=== PATIENT | female | born 1955 | race Caucasian/White ===

== ENCOUNTER 2025-09-29 10:00 | Outpatient (AMB) | payer OTHER, SELFPAY ==
--- NOTE | 2025-09-29 10:11 | MHC.PC.OV ---
Vital Signs 09/29/25 10:15 Height 5 ft 4 in Weight 130 lb 6 oz BMI 22.4 BP 130/80 Blood Pressure Location Lt brachial Position Sitting Respiration 18 Pulse 74 Pulse Source Pulse Oximeter Temp 97.3 F Temp Source Temporal Artery Scan Pulse Oximetry (%) 98 Oxygen Delivery Method Room Air Intake Visit Reasons: CUT OFF SAW OPERATOR METAL-knee pain Acetylene Operator Required: No Accompanied by: Self / Same As Patient Allergies No Known Allergies Allergy (Verified 09/29/25 10:18) Medication List - Last Reconciled 09/29/25 by Sherine Queen MD No Known Home Meds Tobacco use date assessed: 09/29/25 Fall risk assessment: No Falls in past year Last assessed Fall Risk: 09/29/25 Dental Screening Dental Screen Date: 09/29/25 Did you have a dental visit in the last 12 months?: Yes Did you have a dental problem in the last 6 months where you did not have access to dental care?: No Was dental information given to patient?: Patient has dentist HPI HPI Comments History of Present Illness Details The patient is a 70-year-old female presenting to [facility], as she has been without a primary care physician for over a year and expresses dissatisfaction with her previous health center. She currently takes no medications. The patient reports a recent positive stool test and requires a follow-up colonoscopy. She recalls having a colonoscopy a very long time ago and found the liquid preparation unpleasant. She is also due for a bone density scan and a mammogram. The patient has a history of smoking but quit two years ago. She states she smoked on and off, with her longest period of cessation being 15 years, and resumed after her . She reports having a previous lung scan at [facility] due to her smoking history. Past medical history is significant for an episode of pneumonia in her 50s. She has also received the shingles vaccine previously. She had a history of hand contracture, which was initially investigated for a possible stroke, treated unsuccessfully with a cortisone injection, and ultimately resolved with physical therapy. Similarly, a bout of knee pain resulting from an injury also resolved completely with physical therapy. [facility] Social History Alcohol intake: never Patient Tobacco Use Status: Former Tobacco user Tobacco use type: Cigarette e-Cigarette/Vaping Use: Never Used Current occupational status: retired Cognitive needs: No Hearing needs: No Vision needs: Yes Questionnaire PHQ-9 Over the last 2 weeks, how often have you been bothered by any of the following problems? 1. Little interest or pleasure in doing things: not at all 2. Feeling down, depressed, or hopeless: not at all 3. Trouble falling or staying asleep, or sleeping too much: not at all 4. Feeling tired or having little energy: not at all 5. Poor appetite or overeating: not at all 6. Feeling bad about yourself - or that you are a failure or have let yourself or your family down: not at all 7. Trouble concentrating on things, such as reading the newspaper or watching television: not at all 8. Moving or speaking so slowly that other people could have noticed. Or the opposite - being so fidgety or restless that you have been moving around a lot more than usual: not at all 9. Thoughts that you would be better off or of hurting yourself in some way: not at all Total score: 0 80309 - PHQ-9 Billing: Yes Source: Developed by Drs. Riaz Brody, Savanna Devine, Dony Brady and colleagues, with an educational michelle from [employer]. Thrive Questionnaire Date Thrive assessed: 09/29/25 I am a: Patient What is your living situation today?: I have a steady place to live Within the past 12 months, did the food you bought not last and you didn't have the money to get more?: Never true Within the past 12 months, did you worry whether your food would run out before you got money to buy more?: Never true Do you have trouble paying for medicines?: No Do you have trouble getting transportation to medical appointments?: No Do you have trouble paying your heating and electricity bill?: No Do you have trouble taking care of your child, family member or friend?: No Do you have trouble with day-to-day activities such as bathing, preparing meals, shopping, managing finances, etc.?: No Are you currently unemployed and looking for a job?: No Are you interested in more education?: No THRIVE Score: 0 AUDIT C Alcohol Use Questionnaire (AUDIT-C) 1. How often do you have a drink containing alcohol?: Never Total Score: 0 CHARLES-7 AMB Questionnaire CHARLES-7 Date CHARLES - 7 assessed: 09/29/25 Feeling nervous, anxious, or on edge: 0 = Not at all Not being able to stop or control worryin = Not at all Worrying too much about different things: 0 = Not at all Trouble relaxin = Not at all Being so restless that it is hard to sit still: 0 = Not at all Becoming easily annoyed or irritable: 0 = Not at all Feeling afraid as if something awful might happen: 0 = Not at all Total CHARLES-7 score (0-4 normal; 5-9 mild; 10-14 moderate; 15-21 severe): 0 Source: Developed by Drs. Riaz Brody, Savanna Devine, Dony Brady and colleagues, with an educational michelle from [employer]. CHARLES-7 Assessment Billing CHARLES-7 Assessment Tool: CHARLES-7 Assessment 45638 Review of Systems Const Details: Positives besides what was mentioned in HPI are in BOLD Constitutional: No Weight Change, No Fever, No Chills, No Night Sweats, No Fatigue, No Malaise ENT/Mouth: No Hearing Changes, No Ear Pain, No Nasal Congestion, No Sinus Pain, No Hoarseness, No sore throat, No Rhinorrhea, No Swallowing Difficulty Eyes: No Eye Pain, No Swelling, No Redness, No Foreign Body, No Discharge, No Vision Changes Cardiovascular: No Chest Pain, No SOB, No PND, No Dyspnea on Exertion, No Orthopnea, No Claudication, No Edema, No Palpitations Respiratory: No Cough, No Sputum, No Wheezing, No Smoke Exposure, No Dyspnea Gastrointestinal: No Nausea, No Vomiting, No Diarrhea, No Constipation, No Pain, No Heartburn, No Anorexia, No Dysphagia, No Hematochezia, No Melena, No Flatulence, No Jaundice Genitourinary: No Dysmenorrhea, No DUB, No Dyspareunia, No Dysuria, No Urinary Frequency, No Hematuria, No Urinary Incontinence, No Urgency, No Flank Pain, No Urinary Flow Changes, No Hesitancy Musculoskeletal: No Arthralgias, No Myalgias, No Joint Swelling, No Joint Stiffness, No Back Pain, No Neck Pain, No Injury History Skin: No Skin Lesions, No Pruritis, No Hair Changes, No Breast/Skin Changes, No Nipple Discharge Neuro: No Weakness, No Numbness, No Paresthesias, No Loss of Consciousness, No Syncope, No Dizziness, No Headache, No Coordination Changes, No Recent Falls Psych: No Anxiety/Panic, No Depression, No Insomnia, No Personality Changes, No Delusions, No Rumination, No SI/HI/AH/VH, No Social Issues, No Memory Changes, No Violence/Abuse Hx., No Eating Concerns Heme/Lymph: No Bruising, No Bleeding, No Transfusions History, No Lymphadenopathy Endocrine: No Polyuria, No Polydipsia, No Temperature Intolerance Physical exam (Primary Care) Vital Signs: Last Vital Signs Temp 97.3 F 09/29/25 10:15 Pulse 74 09/29/25 10:15 Resp 18 09/29/25 10:15 BP 130/80 09/29/25 10:15 Pulse Ox 98 09/29/25 10:15 Oxygen Delivery Method Room Air 09/29/25 10:15 BMI result Body Mass Index 22.4 Tobacco/Smoking Status: Tobacco use Status Tobacco use date assessed 09/29/25 09/29/25 10:24 Patient Tobacco Use Status Former Tobacco user 09/29/25 10:24 Tobacco use type Cigarette 09/29/25 10:24 e-Cigarette/Vaping Use Never Used 09/29/25 10:24 PHQ-9: PHQ-9 Score PHQ-9: Total score 0 09/29/25 10:55 Thrive Assessment: Date of Thrive Assessment Date Thrive assessed 09/29/25 09/29/25 10:24 Const Other: Pertinent findings are in BOLD GENERAL APPEARANCE NAD, activity normal for age, well developed/ well nourished, no cyanosis, pallor, or diaphoresis. EYES lids/conjunctiva normal. EARS/NOSE/THROAT Mucous membranes moist, nares normal, lips/teeth normal uvula midline without oral pharyngeal erythema, exudate or swelling TMs normal bilaterally. No lymphangitis/lymphedema. HEAD/NECK normocephalic atraumatic, no facial trauma, neck is supple. RESPIRATORY respiratory effort normal, speaks in full sentences, no tripod position, no accessory muscle use. Lungs clear to auscultation without rhonchi, wheezes, rales CARDIAC Regular rate and rhythm, no edema. ABDOMINAL Soft, ND/NT. No evidence of fluid wave. No pulsatile masses on exam, rebound tenderness, Wall sign or pain over Mcburney's point. MUSCLES/EXTREMITIES No abnormal range of motion, no swelling. SKIN Warm, pink and dry. No rashes, dermatoses, petechiae or lesions. NEUROLOGICAL Speech is clear and appropriate. Normal level of consciousness. Gait and coordination are normal. 5/5 strength in all extremities. PSYCH Normal mood and affect. Judgement/competence is appropriate Immunizations pneumoc 20-lula conj-dip cr(PF) 0.5 mL IM syringe Performing Provider: Sherine Queen MD Performing Location: [facility] Administered by: Ngoc Alba CMA on 09/29/25 11:16 Dose Route Admin Location Dispensed Lot Number Expiration Date [facility] [employer] Rep[employer] 0.5 mL IM Right Deltoid 0.5 mL [id number] 08/01/26 5959-2482-56 [employer]YETH/PFIZER Total Dispensed Waste 0.5 mL 0 % VIS Given Date VIS Provided VIS Publication Date 09/29/25 Single Vaccine 25 Eligibility Eligibility Date Funding Source Not VFC Eligible 09/29/25 Private Boostrix Tdap 2.5 Lf unit-8 mcg-5 Lf/0.5 mL intramuscular syringe Performing Provider: Sherine Queen MD Performing Location: [facility] Administered by: Ngoc Alba CMA on 09/29/25 11:16 Dose Route Admin Location Dispensed Lot Number Expiration Date [place] [employer]r 0.5 mL IM Right Deltoid 0.5 mL [id number] 02/25/28 97439-934-03 [employer] Total Dispensed Waste 0.5 mL 0 % VIS Given Date VIS Provided VIS Publication Date 09/29/25 Single Vaccine 21 Eligibility Eligibility Date Funding Source Not VFC Eligible 09/29/25 Private Coding Level of Care Code New Pt Level 4 (15773) New Pt Prev Care 40-64y(26070) Diagnoses Healthcare maintenance Z00.00 Postmenopausal Z78.0 Tobacco use disorder F17.200 Additional Codes CHARLES-7 Assessment Billing - CHARLES-7 Assessment Tool: CHARLES-7 Assessment 19477 ([id number]) PHQ-9 - 65190 - PHQ-9 Billing: Yes ([id number]) Time Spent (min) 30 Assessment & Plan Assessment & Plan (1) Healthcare maintenance: Code(s): Z00.00 - Encounter for general adult medical examination without abnormal findings Category: Medical Plan: CBC, CMP, Lipid panel, A1C, TSH w T4, vit D. Ordered. Shingles 2 doses when >50 yo. Done. COVID: two doses. Done in the past. Tdap: Ordered today. Pneumococcal: >50 yo. 18-49 with CKD, lung disease, weakened immune system, Heart disease, DM, cochlear implant. Flu vaccine: Retail pharmacy Colonoscopy: 45-75. Ordered today. AAA: 65 -75. CT lun - 80. Did not smoke in two years. HPV: Aged out. HIV: Ordered today. HCV: Ordered today. Dexa: Ordered today. Mammogram: Ordered today. (2) Postmenopausal: Code(s): Z78.0 - Asymptomatic menopausal state Category: Medical Plan: Dexascan. (3) Tobacco use disorder: Code(s): F17.200 - Nicotine dependence, unspecified, uncomplicated Category: Medical Plan: - Due to the patient's history of smoking, a one-time screening ultrasound of the abdomen was ordered to check for an abdominal aortic aneurysm (AAA). - Discussed referral to a airplane gas tank liner assembler for consideration of yearly low-dose CT scans for lung cancer screening. Plan I have discussed the plan of care with the patient. We reviewed the necessity of a colonoscopy following her positive stool test, and I explained that while the prep is unpleasant, the standard liquid formula is the most effective. Due to her history of smoking, I explained the rationale for a one-time abdominal aortic aneurysm screening via ultrasound, noting the risk of a potential rupture if an aneurysm is present and undetected. We also discussed a referral to pulmonology for lung cancer screening. I recommended she receive the pneumonia and tetanus (Tdap) vaccines today, which she agreed to, and advised her to get the flu shot at her pharmacy at a later time to avoid potential combined side effects. Orders have been placed for a mammogram, DEXA scan, and routine labs, including HIV and hepatitis C. I encouraged her to establish her patient portal account for easier communication and will contact her with any major results, with routine results being communicated by my nursing staff. Orders: Orders Hemoglobin A1c Today Z00.00 - Encounter for general adult medical examination without abnormal findings HIV Ab/Ag Today Z00.00 - Encounter for general adult medical examination without abnormal findings Lipid Panel Today Z00.00 - Encounter for general adult medical examination without abnormal findings UA and rflx microscopic Today Z00.00 - Encounter for general adult medical examination without abnormal findings US abdominal aortic aneurysm Today F17.200 - Nicotine dependence, unspecified, uncomplicated TDaP Immunization Today Z23 - Encounter for immunization XR DEXA axial skeleton Today Z78.0 - Asymptomatic menopausal state MM screening mammo BI Today Z12.31 - Encounter for screening mammogram for malignant neoplasm of breast Complete Blood Count no Diff Today Z00.00 - Encounter for general adult medical examination without abnormal findings Hepatitis C Antibody Reflex Today Z00.00 - Encounter for general adult medical examination without abnormal findings Vitamin D 25-OH Total Today Z00.00 - Encounter for general adult medical examination without abnormal findings Pneumococcal 20 Immunization Today Z23 - Encounter for immunization Referrals Open Access Screening Colonoscopy Referral Z12.11 - Encounter for screening for malignant neoplasm of colon, Z12.12 - Encounter for screening for malignant neoplasm of rectum Pulmonology Referral F17.200 - Nicotine dependence, unspecified, uncomplicated
[2025-09-29 10:15] VITALS: BP 130/80; PULSE 74; RESP 18; TEMP 36.3; O2SAT 98; BMI 22.4
--- OUTSIDE RECORDS SUMMARY | 2025-09-29 11:59 | XMS_ITS | Encounter Summary ---
Author Organization [facility] Address [address] [place] [id number] Phone Care Team Providers Care Mineral Mixer Name Role Phone Alice Desir NP Primary Care Pr ovider Encounter Details Date Type Department Care Team (Late st Contact Info) Description 07/09/2018 Ancillary Orders Virtual Department [address] [place] [address] Alice Desir, FRANSISCO [address] [place] [address] Breast screening Social History Tobacco Use Types Packs/Day Years Used Date Smoking Tobacco: Never Assessed Comments Unknown Sex and Gender Information Value Date Recorded Sex Assigned at Not on file Legal Sex Female 8:59 AM EDT Gender Identity Not on file Sexual Orientation Not on file documented as of this encounter Plan of Treatment Not on file documented as of this encounter Results * BI MAMMOGRAM SCREENING WITH TOMOSYNTHESIS WITH CAD (BILATERAL) (08/11/2018 3:27 PM EDT) Anatomical Region Laterality Modality Breast Left, Breast Right, Breast Bilateral Bila teral Mammography 08/11/2018 3:37 PM EDT Impressions 08/11/2018 3:59 PM EDT Limited as there is only one prior mammogram exam for comparison. No mammographic evidence of malignancy. Recommend routine annual surveillance. BI-RADS CATEGORY: 2 - Benign finding. DENSITY: The breast tissue is heterogeneously dense, an appearance which lowers the sensitivity of mammography. POS - CDHMAMA Narrative 08/11/2018 3:59 PM EDT 63-year-old female with no current breast symptoms. Comparison made to previous on 10/03/2015. Interpretation made in conjunction with computer-aided detection and tomosynthesis. The breasts are heterogeneously dense, which may obscure small masses. Increase in number of benign bilateral calcifications There are no suspicious masses, areas of architectural distortion, or suspicious clusters of microcalcifications. Procedure Note Diana Alves MD - 08/11/2018 63-year-old female with no current breast symptoms. Comparison made toprevious on 10/03/2015. Interpretation made in conjunction withcomputer-aided detection and tomosynthesis. The breasts are heterogeneously dense, which may obscure small masses.Increase in number of benign bilateral calcifications There are no suspicious masses, areas of architectural distortion, orsuspicious clusters of microcalcifications. IMPRESSION: Limited as there is only one prior mammogram exam for comparison. Nomammographic evidence of malignancy. Recommend routine annualsurveillance. BI-RADS CATEGORY: 2 - Benign finding. DENSITY: The breast tissue is heterogeneously dense, an appearance whichlowers the sensitivity of mammography. POS - CDHMAMA Alice Gonzalez NP IMG MG EXAMS Final Result documented in this encounter Visit Diagnoses Diagnosis Breast screening Breast screening, unspecified Breast screening Breast screening, unspecified documented in this encounter Care Teams Mineral Mixer Relationship Specialty Start Date End Date Alice Desir NP [address] [place] [address] PCP - General Family Medicine 07/10/18 documented as of this encounter Additional Source Comments The information contained in this document represents components of the legal health record. It is not the complete legal health record.[facility]
--- OUTSIDE RECORDS SUMMARY | 2025-09-29 11:59 | XMS_ITS | Encounter Summary ---
Author Organization [facility] Address [address] [place] [address] Phone Care Team Providers Care Dividend Deposit Voucher Clerk Name Role Phone Alice Desir NP Primary Care Pr ovider Encounter Details Date Type Department Care Team (Latest Contact Info) Description 04/06/2025 Transcribe Orders Virtual Department [address] [place] [address] Sis Priest, FRANSISCO [address] [place] [address] [email or web address] Left knee pain, unspecified chronicity (Primary Dx) Social History Tobacco Use Types Packs/Day Years Used Date Smoking Tobacco: Former Cigarettes Smokeless Tobacco: Never Comments:Quit beginning of 2 023 Alcohol Use Standard Drinks/Week Comments Yes 0 (1 standard drink = 0.6 oz pur e alcohol) Education Answer Date Recorded Are you interested in more education? Not on erma e 03/28/2023 Are you concerned about learning? Not on file 03/28/2023 No 03/28/2023 No 03/28/2023 Digital Access Answer Date Recorded No 04/29/2023 No 04/29/2023 Reliable internet access at home? Not on file 04/29/2023 Device with a working camera? Not on file Comments No Sex and Gender Information Value Date Recorded Sex Assigned at Not on file Legal Sex Female 8:59 AM EDT Gender Identity Not on file Sexual Orientation Not on file documented as of this encounter Plan of Treatment Scheduled Orders Name Type Priority Associated Diagnoses Orde r Schedule XR Knee (Left) Imaging Routine Left knee pain, unspecified chronicity Expected: 04/06/2025, Expires: 04/06/2026 documented as of this encounter Visit Diagnoses Diagnosis Left knee pain, unspecified chronicity- Primary documented in this encounter Care Teams Dividend Deposit Voucher Clerk Relationship Specialty Start Date End Date Alice Desir NP [address] [place] [address] PCP - General Family Medicine 07/10/18 documented as of this encounter Additional Source Comments The information contained in this document represents components of the legal health record. It is not the complete legal health record.[facility]
--- OUTSIDE RECORDS SUMMARY | 2025-09-29 11:59 | XMS_ITS | Encounter Summary ---
Author Organization [employer] Address [address] [place] [address] Care Team Providers Care Die Press Operator Name Role Phone Lilly Howell Primary Care Provider Un available Cal [place] Unassigned Primary Care Provider U navailable Tisah Antonio Primary Care Provider [phone] Khushboo Naranjo Unavailable Unavailable Yamilet Hutchins RD Unavailable [phone] PcpCal Unassigned Primary Care Provider U jodyailable Encounter Details Date Type Department Care Team (Latest Contact Info) Description 12/17/2018 Abstract [facility] CONVERSIONS Dental, Provider, DDS Social History Tobacco Use Types Packs/Day Years Used Date Smoking Tobacco: Never Assessed Comments Unknown Sex and Gender Information Value Date Recorded Sex Assigned at Female 04/07/2023 9:17 AM EDT Legal Sex Female 8:32 PM EDT Gender Identity Female 04/07/2023 9:17 AM EDT Sexual Orientation Straight 08/26/2024 9: 42 AM EDT documented as of this encounter Plan of Treatment Upcoming Encounters Date Type Department Care Team (Late st Contact Info) Description 10/17/2025 9:00 AM EST Clinical Support Cal [facility] [address] [place] [address] [place] [address] documented as of this encounter Visit Diagnoses Not on filedocumented in this encounter Care Teams Die Press Operator Relationship Specialty Start Date End Date Lilly Howell FNP PCP - General Family Medicine 04/07/23 07/11/24 Cal Cartagena Unassigned PCP - General Family Medicine 07/12/24 08/23/24 Tisha Antonio FNP [address] [place] [address] PCP - General Family Medicine 08/24/24 08/22/25 PcpCal Unassigned PCP - General Family Medicine 08/23/25 Khushboo Naranjo Health Navigator 09/20/[address] [place] [address] Dietitian Dietitian 02/04/25 documented as of this encounter
--- OUTSIDE RECORDS SUMMARY | 2025-09-29 11:59 | XMS_ITS | Clinical Summary ---
Author Organization [facility] Address [address] [facility] [address] [place] [address] Phone Care Team Providers Care Textile Slitting Machine Operator Name Role Phone Alice Desir NP Primary Care Pr ovider Allergies No known active allergies Medications naproxen (NAPROSYN) 500 MG tablet Take 1 tablet (500 mg total) by mouth 2 (two) times a day with meals. 20 tablet 1 06/10/2023 Active Active Problems Problem Noted Date Diagnosed Date HGSIL (high grade squamous i ntraepithelial lesion) on Pap smear of cervix 07/21/2018 Overview (07/21/2018): 09/27/2015 - patient lost insurance and did not followup 2012- pap normal Social History Tobacco Use Types Packs/Day Years Used Date Smoking Tobacco: Former Cigarettes Smokeless Tobacco: Never Tobacco Cessation:Counseling Given: Not Answered Comments:Quit beginning of 2022 Alcohol Use Standard Drinks/Week Comments Yes 0 [...] on file Sexual Orientation Not on file Last Filed Vital Signs Vital Sign Reading Time Taken Comments Blood Pressure 120/70 07/27/2018 3:27 PM EDT Pulse - - Temperature - - Respiratory Rate - - Oxygen Saturation - - Inhaled Oxygen Concentration - - Weight 55.8 kg (123 lb) 07/27/2018 3:27 PM EDT Height 170.2 cm (5' 7 ) 07/27/2018 3:27 PM EDT Body Mass Index 19.26 07/27/2018 3:27 PM EDT Plan of Treatment Health Maintenance Due Date Last Done Comments Adult Td,Tdap Booster 1957 LIPID PANEL 1957 DEPRESSION SCREENING 1969 SMOKING Hx and SMOKELESS TOBACCO SCREENING 1970 HEPATITIS C SCREENING 1975 COLOGUARD 2002 COLONOSCOPY 2002 COLORECTAL CANCER SCREENING 2002 FIT TEST 2002 FOBT 2002 SIGMOIDOSCOPY 2002 VIRTUAL COLONOSCOPY 2002 PNEUMOCOCCAL VACCINES (50+ years) (1 of 1 - PCV) 2007 MAMMOGRAM 08/11/2020 08/11/2018, 08/01, 11/07/2015, Additional history exists OSTEOPOROSIS SCREENING INITIAL (ONE-TIME) 2022 INFLUENZA VACCINE (#1) 2025 08/30/2019 COVID-19 VACCINE (2 - season) 2025 04/06/2021 RSV VACCINE (1 - 1-dose 75+ series) 2032 ZOSTER VACCINES Completed 11/27/2019, 09/20/2019 HEPATITIS A VACCINES Aged Out No long er eligible based on patient's age to complete this topic HIB VACCINES Aged Out No longer eligi ble based on patient's age to complete this topic MENINGOCOCCAL VACCINES (ACWY) Aged Out No longer eligible based on patient's age to complete this topic MENINGOCOCCAL VACCINES (B) Aged Out N o longer eligible based on patient's age to complete this topic Medical Devices Not on file Procedures Procedure Name Priority Date/Time Associated Diagnosis Comments BI MAMMOGRAM SCREENING WITH TOMOSYNTHESIS WITH CAD (BILATERAL) Routine 08/11/2018 3:27 PM EDT Breast screening from Last 3 Months or Most Recently Relevant to Health Maintenance Results * BI MAMMOGRAM SCREENING WITH TOMOSYNTHESIS [...] of mammography. POS - CDHMAMA Alice Gonzalez READING ASSISTANT IMG MG EXAMS Final Result from Last 3 Months or Most Recently Relevant to Health Maintenance Insurance MEDICARE PART A & B MEDICARE PART A & B MEDICARE PART A & B MEDICARE PART A & B MEDICARE PART A & [place] [id number] Care Teams Textile Slitting Machine Operator Relationship Specialty Start Date End Date Alice Desir NP [address] [place] [address] PCP - General Family Medicine 07/10/18 Additional Source Comments The information contained in this document represents components of the legal health record. It is not the complete legal health record.[facility]
--- OUTSIDE RECORDS SUMMARY | 2025-09-29 12:00 | XMS_ITS | Encounter Summary ---
Author Organization [employer] Address [address] [facility] [facility] [address] [place] [address] Care Team Providers Care Ux Consultant Name Role Phone Paco Tisha EXCEPTIONAL CHILDREN'S TEACHER Primary Care Provider [phone] Khushboo Naranjo Unavailable Unavailable Yamilet Hutchins RD Unavailable [phone] Cal Cartagena Unassigned Primary Care Provider Sophia mcgovern Encounter Details Date Type Department Care Team (Late st Contact Info) Description 04/08/2025 Orders Only [facility] [address] [place] [address] Sis Priest NP Social History Tobacco Use Types Packs/Day Years Used Date Smoking Tobacco: Former Cigarettes 0.3 0.3 0 08/2024 - 11/22/2024 Passive Smoke Exposure: Current Smokeless Tobacco: Never Comments:Quit on 11/22/24!!! Alcohol Use Standard Drinks/Week Comments Yes 0 (1 standard drink = 0.6 oz pure alcohol) Rarely maybe a beer 3 or 4 weeks ago 09 15 2024 Alcohol Answer Date Recorded How often do you have a drink containing alcohol ? 0 04/06/2025 How many drinks containing a lcohol do you have on a typical day when you are drinking? 0 04/06/2025 How often do you have six or more drinks on one occasion? 0 04/06/2025 Housing Stability Answer Date Recorded What is your housing situation today? I have leigh swenson 08/26/[address] you li ve. Do you have problems with any of the following? None of the above 08/26/2024 Food Insecurity Answer Date Recorded Within the past 12 months, y ou worried that your food would run out before you got money to buy more: Never True 08/26/2024 Within the past 12 months,th e food you bought just didn't last and you didn't have enough money to get more: Never True Transportation Answer Date Recorded In the past 12 months, has l ack of transportation kept you from medical appts, meetings, work or from getting things needed for daily living? No 08/26/2024 Intimate Partner Violence Answer Date R ecorded Within the last year, have y ou been afraid of your partner or ex-partner? 2 04/06/2025 Within the last year, have y ou been humiliated or emotionally abused in other ways by your partner or ex-partner? 2 Within the last year, have y ou been kicked, hit, slapped, or otherwise physically hurt by your partner or ex-partner? 2 04/06/2025 Within the last year, have y ou been raped or forced to have any kind of sexual activity by your partner or ex-partner? 2 04/06/2025 Utilities Answer Date Recorded In the past 12 months, has t he electric, gas, oil or water company threatened to shut off services in your home? No 08/26/2024 Depression Answer Date Recorded Patient Health Questionnaire-2 Score 0 08/26/2024 Internet Access Answer Date Recorded Internet Access Q1 Yes 08/26/2024 Internet Access Q2 Not on file 08/26/2024 Comments No Sex and Gender Information Value [...] 10/17/2025 9:00 AM EST Clinical Support [facility] [address] [place] [address] Yamilet Hutchins, KILO [address] [place] [address] documented as of this encounter Procedures Procedure Name Priority Date/Time Associated Diagnosis Comments XR KNEE 1-2 VIEWS LEFT Routine 04/07/2025 10:16 AM EDT documented in this encounter Results * XR Knee 1-2 Views Left (04/07/2025 10:16 AM EDT) Anatomical Region Laterality Modality Lower Extremities, Knee Left Radiogra phic Imaging us Sis Priest GAS STATION SERVICE ATTENDANT IMG XR PROCEDURES Fin al Result documented in this encounter Visit Diagnoses Not on filedocumented in this encounter Care Teams Ux Consultant Relationship Specialty Start Date End Date Tisha Antonio FNP [address] [place] [address] PCP - General Family Medicine 08/24/24 08/22/25 Cal Cartagena Unassigned PCP - General Family Medicine 08/23/25 Khushboo Naranjo Health Navigator 09/20/[address] [place] [address] Dietitian Dietitian 02/04/25 documented as of this encounter
--- OUTSIDE RECORDS SUMMARY | 2025-09-29 12:00 | XMS_ITS | Encounter Summary ---
Author Organization [facility] Address [address] [place] [address] Phone Care Team Providers Care High [employer] Computer Science Teacher Name Role Phone Alice Desir NP Primary Care Pr ovider Encounter Details Date Type Department Care Team (Late st Contact Info) Description 07/28/2018 Procedure Pass [facility], Ct Scan - [address] [address] Social History Tobacco Use Types Packs/Day Years Used Date Smoking Tobacco: Every Day Smokeless Tobacco: Never Alcohol Use Standard Drinks/Week Comments Yes 0 (1 standard drink = 0.6 oz pur e alcohol) Comments No Sex and Gender Information Value Date Recorded Sex Assigned at Not on file Legal Sex Female 8:59 AM EDT Gender Identity Not on file Sexual Orientation Not on file documented as of this encounter Plan of Treatment Not on file documented as of this encounter Visit Diagnoses Not on filedocumented in this encounter Care Teams High [employer] Computer Science Teacher Relationship Specialty Start Date End Date Alice Desir, [facility] [place] [address] PCP - General Family Medicine 07/10/18 documented as of this encounter Additional Source Comments The information contained in this document represents components of the legal health record. It is not the complete legal health record.[facility]
--- OUTSIDE RECORDS SUMMARY | 2025-09-29 12:00 | XMS_ITS | Clinical Summary ---
Author Organization [employer] Address [address] [place] [address] Care Team Providers Care Fuel Cell Designer Name Role Phone Khushboo Naranjo Unavailable Unavailable Yamilet Hutchins RD Unavailable [phone] Pcp, Cal Unassigned Primary Care Provider U navailable Allergies No known active allergies Medications No known medications Active Problems Problem Noted Date Diagnosed Date Rampant dental caries 04/14/2025 Acute pain of left knee 04/06/2025 Acute pain of right knee 04/06/2025 Mixed hyperlipidemia 09/15/2024 Assessment & Plan (09/15/2024 6:21 PM EDT): Images from the original note were not included. Discuss lab results in detail, pt has NO interest in medication and is very interested in meeting with RD, will keep dietary log and schedule consult, referral entered at [facility] visit. Encouraged Arleth to establish with PCP who will be taking over for Tisha Antonio's panel of patients and states she will do so and request repeat labs about 3 months after Arleth makes dietary improvements after meeting with RD. Contains abnormal data Lipid Panel, Standard Order: [id number] Status: Final result Visible to patient: No (inaccessible in MyChart) Dx: Screening cholesterol level 1 Result Note 1 Follow-up Encounter 1 Topic Component Ref Range & Units 2 wk ago Cholesterol, Total 100 - 199 mg/dL 273 High Triglycerides 0 - 149 mg/dL 84 HDL Cholesterol >39 mg/dL 84 VLDL Cholesterol [place] 5 - 40 mg/dL 14 LDL Chol Calc (NIH) 0 - 99 mg/dL 175 High Resulting Agency [facility] 01 Narrative Performed by: [facility] 01 Performed at: 01 - [facility] [address] [id number] Hop Separator: Cally Nowak MD, Phone: [phone] Specimen Collected: 08/26/24 09:54 Last Resulted: 08/27/24 06:05 Lab Flowsheet Order Details View Encounter Lab and Collection Details Routing Result History View All Conversations on this Encounter Result Care Coordination Prediabetes 09/15/2024 Assessment & Plan (09/15/2024 6:23 PM EDT): Pt with normal BMI, current A1C 5.7, occasional smoker but plans to quit completely now. Agreeable to meet with RD for consult, will bring dietary log, stay well hydrated with water and f/up with PCP who will be taking over for A Paco's panel of patients since she will be leaving [place]. Also encouraged Arleth to ask about repeating labs about 3 months after she has her dietary consult and has implemented recommended changes, agrees to plan and no further questions nor concerns at visit conclusion. Elevated blood pressure reading 08/26/2024 Overview (08/26/2024): BP Readings from Last 4 Encounters: 08/26/24 (!) 150/90 05/15/23 120/66 04/14/23 130/80 04/08/23 102/70 Patient has not had an elevated BP reading prior to today's visit. She is anxious about this. We provided education that this is likely related to resuming smoking. Encouraged smoking cessation, monitoring salt intake. Patient extremely hesitant to start medication. We will continue to monitor. Encounter to establish care 08/26/2024 Overview (08/26/2024): Discussed health history and updated chart. Discussed health goals. Adjustment disorder, unspecified 04/08/2023 Combined forms of age-related cataract of both e yes 04/08/2023 HGSIL (high grade squamous i ntraepithelial lesion) on Pap smear of cervix 07/21/2018 Overview (08/26/2024): 09/27/2015 - patient lost insurance and did not followup 2012- pap normal History of abnormal pap smear. Encouraged patient to follow-up with gynecology or schedule with [facility] for a pap. Discussed risks and benefits. She is considering her options. We will continue to monitor. Encounters Date Type Department Care Team Description 08/18/2025 Telephone [facility] ADULT DENTAL [address] [place] [address] Amie Kennedy 07/16/2025 Telephone [facility] MEDICAL [address] [place] [address] Leighann Lowry MD 07/11/2025 9:00 AM EDT Clinical Support [facility] NUTRITION [address] [place] [address] Prediabetes (Primary Dx); Mixed hyperlipidemia; Acute pain of left knee; Acute pain of right knee from Last 3 Months Immunizations Immunization Administration Dates Next Due INFLUENZA INJECTABLE QUADRIV ALANT CCIIV4 MDCK Multi-dose vial 08/30/2019 Influenza, IIV3, injectable 09/27/2015, 4 Tdap 07/08/2018,09/28/2007 Zoster, Recombinant 11/27/2019,09/20/2019 Family History Relation Name Status Comments Other no family histo ry of glaucoma or ARMD Social History Tobacco Use Types Packs/Day Years Used Date Smoking Tobacco: Former Cigarettes 0.3 0.3 0 08/2024 - 11/22/2024 Passive Smoke Exposure: Current Smokeless Tobacco: Never Tobacco Cessation:Counseling Given: Not Answered Comments:Quit on 11/22/24!!! Alcohol Use Standard Drinks/Week [...] is your housing situation today? I have leighela swenson 08/26/[address] you [...] Orientation Straight 08/26/2024 9: 42 AM EDT Last Filed Vital Signs Vital Sign Reading Time Taken Comments Blood Pressure 118/68 04/14/2025 8:03 AM EDT Pulse 78 04/06/2025 9:32 AM EDT Temperature 36.6 C (97.8 F) 08/26/2024 8:28 AM EDT Respiratory Rate 16 05/15/2023 11:32 AM EDT Oxygen Saturation 93% 04/06/2025 9:32 AM EDT Inhaled Oxygen Concentration - - Weight 56.4 kg (124 lb 6.4 oz) 07/11/2025 9:08 A M EDT Height 162.6 cm (5' 4 ) 07/11/2025 9:08 AM EDT Body Mass Index 21.35 07/11/2025 9:08 AM EDT Plan of Treatment Upcoming Encounters Date Type Department Care Team (Late st Contact Info) Description 10/17/2025 9:00 AM EST Clinical Support [facility] [place] [facility] [address] [facility] [place] [address] Yamilet Hutchins, RD [address] [facility] [place] [address] Health Maintenance Due Date Last Done Comments CT Colonography 1957 Colonoscopy 1957 Colorectal Cancer Screening 1957 Dental Prophylaxis 1957 FIT DNA/Cologuard 1957 FIT 1957 FOBT 1957 Sigmoidoscopy 1957 Pneumococcal Vaccine: 50+ Years (1 of 1 - PCV) 2007 Mammogram 08/11/2020 08/11/2018, 08/01, 08/11/2018, Additional history exists COVID-19 Vaccine ( - 2024- season) 2025 11/16/2021, 04/06/2021 Influenza Vaccine (#1) 2025 9, 09/27/2015, 09/22/2014 Depression Screening 08/26/2025 08/26/2024, 08/26/20 24 SDOH Screening 08/26/2025 08/26/2024 Dental Oral Exam 11/13/2025 05/13/2025, 12/17/2018 Diabetes: Hemoglobin A1C 02/17/2026 02/17/2025, 08/02 Alcohol/Substance Use Screening 04/06/2026 04/06/2025 Dental X-Ray: Bitewings 05/14/2026 05/13/20 25, 04/11/2025, 12/17/2018 Tobacco Screening 06/28/2026 06/28/2025 Dental X-Ray: Full Mouth 05/14/2028 05/13/2025, 12/01 DTaP/Tdap/Td Vaccines (3 - Td or Tdap) 07/08/2028 07/08/2018, 09/28/2007 RSV Patients and Patients Aged 60 years or older (1 - 1-dose 75+ series) 2032 Cervical Cancer Screening Discontinued Pap Smear Discontinued 09/28/2015 Zoster Vaccines Completed 11/27/2019, 09/20/2019 Hepatitis C Screening Completed 08/26/2024 HIB Vaccines Aged Out No longer eligi ble based on patient's age to complete this topic HPV Vaccines Aged Out No longer eligi ble based on patient's age to complete this topic HPV/Cotest Discontinued Hepatitis A Vaccines Aged Out No long er eligible based on patient's age to complete this topic Hepatitis B Vaccines Aged Out No long er eligible based on patient's age to complete this topic IPV Vaccines Aged Out No longer eligi ble based on patient's age to complete this topic Meningococcal B Vaccine Aged Out No l onger eligible based on patient's age to complete this topic Meningococcal Vaccine Aged Out No lilly omero eligible based on patient's age to complete this topic RSV under 20 months Aged Out No longe r eligible based on patient's age to complete this topic Rotavirus Vaccines Aged Out No longer eligible based on patient's age to complete this topic Procedures Procedure Name Priority Date/Time Associated Diagnosis Comments INTRAORAL - COMPLETE SERIES OF RADIOGRAPHIC IMAGES Routine 05/13/2025 8:00 AM EDT Dental caries Encounter for dental examination Dental calculus Dental abscess Teeth missing Unsatisfactory gnosticist of tooth COMPREHENSIVE ORAL EVALUATION - NEW OR ESTABLISHED PATIENT Routine 05/13/2025 8:00 AM EDT Dental caries Encounter for dental examination Dental calculus Dental abscess Teeth missing Unsatisfactory gnosticist of tooth HEMOGLOBIN A1C Routine 02/17/2025 9:41 AM EDT Pre-diabetes HEPATITIS C VIRUS (HCV) AB CASCADE TO QNT PCR & GENOTYP Routine 08/26/2024 9:54 AM EDT Encounter for hepatitis C screening test for low risk patient BI MAMMOGRAM DIAGNOSTIC BILATERAL Routine 08/11/2018 3:27 PM EDT THIN PREP PAP Routine 09/28/2015 12:00 AM EDT from Last 3 Months or Most Recently Relevant to Health Maintenance Results * Hemoglobin A1c (02/17/2025 9:41 AM EDT) Hemoglobin A1c 5.5 4.8 - 5.6 % [facility] 1 Comment: Prediabetes: 5.7 - 6.4 Diabetes: >6.4 Glycemic control for adults with diabetes: <7.0 Blood Venous blood specimen / Unknown 02/17/2025 9:41 AM EDT 02/17/2025 Narrative [facility] 1 - 02/18/2025 12:05 AM EDT Performed at: - [facility] [id number] Hop Separator: Cally Nowak MD, Phone: [phone] [facility] LAB BLOOD ORDERABLES Cate l Result [facility] 1 * Hepatitis C Virus (HCV) Antibody [place] to Quantitative PCR and Genotyping [id number] (08/26/2024 9:54AM EDT) [facility] HCV Ab Non Reactive Non Reactive [facility] 1 Blood Venous blood specimen / Unknown 08/26/2024 9:54 AM EDT 08/26/2024 Narrative [facility] 1 - 08/27/2024 10:06 AM EDT Performed at: - [facility] [address], [address], [place], [place] [id number] Hop Separator: Haroldo Whitaker MD, Phone: [phone] Tisha Antonio [facility] LAB BLOOD ORDERABLES Final Resul t [facility] 1 * BI MAMMOGRAM SCREENING WITH TOMOSYNTHESIS WITH CAD (BILATERAL) (08/11/2018 3:27 PM EDT) Anatomical Region Laterality Modality Breast Bilateral Mammography 08/11/2018 3:27 PM EDT Narrative 09/19/2018 1:55 AM EDT Refer to Stacey for result details [facility] Procedure: BI MAMMOGRAM SCREENING WITH TOMOSYNTHESIS WITH CAD (BILATERAL) Procedure Note ProviderMolly MD - 03/26/2023 Refer to Stacey for result details [facility] Procedure: BI MAMMOGRAM SCREENING WITH TOMOSYNTHESIS WITH CAD(BILATERAL) us Historical Provider MD MORENO BI PROCEDURES Final R esult * THIN PREP PAP (09/28/2015 12:00 AM EDT) Historical Provider LAB CYTOLOGY ORDERABLES F inal Result [facility] [address] [place] [address] from Last 3 Months or Most Recently Relevant to Health Maintenance Insurance MEDICARE [employer] MEDICARE ADVANTAGE HMO DENTAL - [facility] PPO * Guarantor: Arleth Staley Account Type Relation to Patient Date of Phone Billing Address Dental Self [address] [facility] [address] Advance Directives Documents on File Type Date Recorded Patient Production Tester Expl anation HealthCare Proxy 01/07/2023 12:07 PM Health Care Proxy Care Teams Fuel Cell Designer Relationship Specialty Start Date End Date Cal Cartagena Unassigned PCP - General Family Medicine 08/23/25 Khushboo Naranjo Health Navigator 09/20/[address] [place] [address] Dietitian Dietitian 02/04/25
--- OUTSIDE RECORDS SUMMARY | 2025-09-29 12:00 | XMS_ITS | Encounter Summary ---
Author Organization [facility] Address [address] [place] [address] Phone Care Team Providers Care Improvement Analyst Name Role Phone Alice Desir GATHERING MACHINE SETTER Primary Care Pr ovider Encounter Details Date Type Department Care Team (Late st Contact Info) Description 07/17/2018 Ancillary Orders [facility],Outside Imaging [address] [place], [place] [id number] System, Provider Not In, [facility] [address] [address] Social History Tobacco Use Types Packs/Day Years Used Date Smoking Tobacco: Never Assessed Comments Unknown Sex and Gender Information Value Date Recorded Sex Assigned at Not on file Legal Sex Female 8:59 AM EDT Gender Identity Not on file Sexual Orientation Not on file documented as of this encounter Plan of Treatment Not on file documented as of this encounter Results * Mammogram Outside (No Interpretation) (11/07/2015 12:00 AM EST) Narrative SYSTEMGENERATED, DOCUMENTATION - 07/17/2018 12:15 PM EDT This study is for PACS storage only and not for interpretation. us Provider Not In System PhD IMG OUTSIDE IMAGING W /OUT INTERPRETATION Final Result * Mammogram Outside (No Interpretation) (10/03/2015 12:00 AM EST) Narrative SYSTEMGENERATED, DOCUMENTATION - 07/17/2018 12:16 PM EDT This study is for PACS storage only and not for interpretation. us Provider Not In System PhD IMG OUTSIDE IMAGING W /OUT INTERPRETATION Final Result documented in this encounter Visit Diagnoses Not on filedocumented in this encounter Care Teams Improvement Analyst Relationship Specialty Start Date End Date Alice Desir [facility] [place] [address] PCP - General Family Medicine 07/10/18 documented as of this encounter Additional Source Comments The information contained in this document represents components of the legal health record. It is not the complete legal health record.[facility]
--- OUTSIDE RECORDS SUMMARY | 2025-09-29 12:00 | XMS_ITS | Encounter Summary ---
Author Organization [facility] Address [address] [place] [phone] Phone Care Team Providers Care Crop Adjuster Name Role Phone Alice Desir NP Primary Care Pr ovider Reason for Referral * MRI/CAT Scan - Closed Specialty Diagnoses / Procedures Referred By Jb haines Referred To Contact Radiology Diagnoses Tobacco abuse Encounter for screening for lung cancer Procedures CT Chest Lung Cancer Screening Alice Desir NP Phone: tel: fax: Referral ID Status Reason Start Date Expiration Date Visits Re quested Visits Authorized [id number] Closed 07/15/2018 09/13/2018 1 1 Encounter Details Date Type Department Care Team (Late st Contact Info) Description 07/28/2018 Ancillary Orders Virtual Department [address] [place] [address] Alice Desir NP [address] [place] [address] Tobacco abuse; Encounter for screening for lung cancer Social History Tobacco Use Types Packs/Day Years [...] documented as of this encounter Results * CT CHEST LUNG CANCER SCREENING INITIAL (08/13/2018 4:15 PM EDT) Anatomical Region Laterality Modality Chest Computed Tomogra phy 08/13/2018 4:36 PM EDT Impressions 08/13/2018 4:58 PM EDT Sub 6-mm pulmonary nodules. Moderate centrilobular emphysema with hyperinflation. No findings of specific concern. LUNG RAD: LUNG RAD CATEGORY 2 - BENIGN APPEARANCE OR BEHAVIOR - CONTINUE ANNUAL SCREENING WITH LDCT IN 12 MONTHS TOTAL CTDIvol: 0.6 mGy POS [id number] Edited by: Anahy Her on 08/13/2018 4:50 PM Narrative 08/13/2018 4:58 PM EDT HISTORY: Low dose CT lung cancer screening. TECHNIQUE: Non-contrast, low dose axial CT with sagittal and coronal reconstructions. COMPARISON EXAM: None. This is a 63-year-old patient referred for Low Dose CT Lung Cancer Screening (LDCT). The patient has no signs or symptoms of lung cancer and has a 30-pack year or greater history of tobacco smoking. They are a current smoker or have quit smoking within the last 15 years and have a written order for LDCT from a qualified health professional following a lung cancer screening counseling that attests to shared decision- making having taken place before their first screening CT. The patient is also offered smoking cessation material at the time of the LDCT. RESULTS: Right lung: Moderate centrilobular emphysema in multiple lobes. Granuloma right lower lobe peripherally. Pleural-parenchymal density apical left lower lobe posteriorly, probably more pleural-based measuring less than 6 mm in average diameter. Minimal scarring right base. No pleural fluid. No central airway lesion. No significant atelectasis. Hyperinflation. Left lung: Sub 4-mm in diameter left lower lobe pulmonary nodule. Some linear atelectasis or scarring in the base. Moderate centrilobular emphysema in multiple lobes. No pleural effusion or central airway lesion. Hyperinflation. Mediastinum and sanjeev: No adenopathy or mass identified. Chest wall and thoracic inlet: No findings of concern. Abdominal structures including liver, spleen, bowel, adrenals: No findings of concern. Bones and other: Mild compression deformity T3 is chronic-appearing. Bones are striated in appearance suggesting diffuse moderate demineralization. No bony destructive lesion. Procedure Note Michael Arreaga MD - 08/13/2018 HISTORY: Low dose CT lung cancer screening. TECHNIQUE: Non-contrast, low dose axial CT with sagittal and coronalreconstructions. COMPARISON EXAM: None. This is a 63-year-old patient referred for Low Dose CT Lung CancerScreening (LDCT). The patient has no signs or symptoms of lung cancer andhas a 30-pack year or greater history of tobacco smoking. They are acurrent smoker or have quit smoking within the last 15 years and have awritten order for LDCT from a qualified health professional following alung cancer screening counseling that attests to shared decision-makinghaving taken place before their first screening CT. The patient is alsooffered smoking cessation material at the time of the LDCT. RESULTS: Right lung: Moderate centrilobular emphysema in multiple lobes. Granulomaright lower lobe peripherally. Pleural-parenchymal density apical leftlower lobe posteriorly, probably more pleural-based measuring less than 6mm in average diameter. Minimal scarring right base. No pleural fluid. Nocentral airway lesion. No significant atelectasis. Hyperinflation. Left lung: Sub 4-mm in diameter left lower lobe pulmonary nodule. Somelinear atelectasis or scarring in the base. Moderate centrilobularemphysema in multiple lobes. No pleural effusion or central airway lesion.Hyperinflation. Mediastinum and sanjeev: No adenopathy or mass identified. Chest wall and thoracic inlet: No findings of concern. Abdominal structures including liver, spleen, bowel, adrenals: No findingsof concern. Bones and other: Mild compression deformity T3 is chronic-appearing. Bonesare striated in appearance suggesting diffuse moderate demineralization.No bony destructive lesion. IMPRESSION: Sub 6-mm pulmonary nodules. Moderate centrilobular emphysema withhyperinflation. No findings of specific concern. LUNG RAD: LUNG RAD CATEGORY 2 - BENIGN APPEARANCE OR BEHAVIOR - CONTINUEANNUAL SCREENING WITH LDCT IN 12 MONTHS TOTAL CTDIvol: 0.6 mGy POS [id number] Edited by: Anahy Her on 08/13/2018 4:50 PM Alice Gonzalez MEDICAL ACCOUNTANT IMG CT CHEST Final Result documented in this encounter Visit Diagnoses Diagnosis Tobacco abuse Tobacco use disorder Encounter for screening for lung cancer Tobacco abuse Tobacco use disorder Encounter for screening for lung cancer documented in this encounter Care Teams Crop Adjuster Relationship Specialty Start Date End Date [facility] Des[facility] [place] [address] PCP - General Family Medicine 07/10/18 documented as of this encounter Additional Source Comments The information contained in this document represents components of the legal health record. It is not the complete legal health record.[facility]
--- OUTSIDE RECORDS SUMMARY | 2025-09-29 12:00 | XMS_ITS | Encounter Summary ---
Author Organization [facility] Address [address] [place] [phone] Phone Care Team Providers Care Manager Of Application Development Name Role Phone Alice Desir NP Primary Care Pr ovider Encounter Details Date Type Department Care Team (Latest Contact Info) Description 09/29/2019 Transcribe Orders Virtual Department [address] [place] [phone] Rissa Bedoya NP [address] [place] [phone] [email or web address] Swelling of knee joint, left (Primary Dx) Social History Tobacco Use Types [...] documented as of this encounter Results * US LOWER EXTREMITY NON-VASCULAR LIMITED (LEFT) (10/05/2019 3:49 PM EST) Anatomical Region Laterality Modality Hip Left, Thigh Left, Knee L eft, Leg Left, Ankle Left, Foot Left Ultrasound 10/05/2019 3:51 PM EST Impressions 10/05/2019 4:10 PM EST Complex fluid collection, possibly reflecting a residual hematoma or seroma from the trauma. Aspiration could be attempted as felt clinically warranted for relief of symptoms and further diagnosis. POS- [id number] Edited by: Anahy Her on 10/05/2019 3:58 PM Narrative 10/05/2019 4:10 PM EST Ultrasonic examination is performed lateral to the knee and upper calf in an area of a palpable abnormality. Patient is status-post trauma approximately 1.5 months previously. Corresponding to the palpable abnormality is a 3.9 x 3.3 x 1.1 cm [id number] area with through transmission and no color Doppler flow. This is likely to represent a fluid collection, possibly a residual hematoma or seroma. Abscess is possible in the appropriate clinical setting. No calcification seen within. It is immediately deep to the skin surface. Procedure Note Michael Arreaga MD - 10/05/2019 Ultrasonic examination is performed lateral to the knee and upper calf inan area of a palpable abnormality. Patient is status-post traumaapproximately 1.5 months previously. Corresponding to the palpableabnormality is a 3.9 x 3.3 x 1.1 cm [id number] area with throughtransmission and no color Doppler flow. This is likely to represent afluid collection, possibly a residual hematoma or seroma. Abscess ispossible in the appropriate clinical setting. No calcification seenwithin. It is immediately deep to the skin surface. IMPRESSION: Complex fluid collection, possibly reflecting a residual hematoma orseroma from the trauma. Aspiration could be attempted as felt clinicallywarranted for relief of symptoms and further diagnosis. POS- [id number] Edited by: Anahy Her on 10/05/2019 3:58 PM us Rissa Bedoya ASSOCIATE JUSTICE IMG US EXTREMITY Final Res ult documented in this encounter Visit Diagnoses Diagnosis Swelling of knee joint, left- Primary Swelling of knee joint, left documented in this encounter Care Teams Manager Of Application Development Relationship Specialty Start Date End Date [facility] Des[facility] [place] [address] PCP - General Family Medicine 07/10/18 documented as of this encounter Additional Source Comments The information contained in this document represents components of the legal health record. It is not the complete legal health record.[facility]
--- OUTSIDE RECORDS SUMMARY | 2025-09-29 12:00 | XMS_ITS | Encounter Summary ---
Author Organization [facility] Address [address] [place] [phone] Phone Care Team Providers Care Mandrel Press Hand Name Role Phone Alice Desir NP Primary Care Pr ovider Encounter Details Date Type Department Care Team (Late st Contact Info) Description 07/28/2018 Ancillary Orders Virtual Department [address] [place] [address] Alice Desir NP [address] [place] [address] Social History Tobacco Use Types Packs/Day Years [...] on filedocumented in this encounter Care Teams Mandrel Press Hand Relationship Specialty Start Date End Date Alice Desir NP [address] [place] [address] PCP - General Family Medicine 07/10/18 documented as of this encounter Additional Source Comments The information contained in this document represents components of the legal health record. It is not the complete legal health record.[facility]
== END 2025-09-29 11:25 | disposition home or self-care (01) ==
LOC: HO.HMCH 10:01
PROVIDERS: Visit Provider Internal Medicine
DX: Z00.00 Encounter for general adult medical examination without abnormal findings (principal); F17.200 Nicotine dependence, unspecified, uncomplicated; Z78.0 Asymptomatic menopausal state; Z23 Encounter for immunization

== ENCOUNTER 2025-09-29 10:00 | Outpatient (REF) | payer OTHER, SELFPAY ==
[2025-09-29 12:08] LABS: Hematocrit 47.2 % (37.0-47.0); Hemoglobin 14.9 g/dl (12.0-16.0); Mean Corpuscular HGB Conc 31.6 g/dl (31.0-35.0); Mean Corpuscular Hemoglobin 29.4 pg (27.0-33.0); Mean Corpuscular Volume 93.1 fL (80.0-98.0); NRBC Abs Auto 0.000 X10*3/uL (0.0-0.012); NRBC Pct Auto 0.0 /100WBC (0.0-0.2); Platelet Count 292 X10*3/uL (160-400); Red Blood Count 5.07 X10*6/uL (4.20-5.50); White Blood Count 7.9 X10*3/uL (4.8-10.8)
[2025-09-29 12:34] LABS: Cholesterol 286 mg/dL (<200); HDL Cholesterol 84 mg/dL (>40); Triglycerides 82 mg/dL (<150)
[2025-09-29 12:34] LABS: Appearance Urine Clear; Glucose Urine UA Negative (Negative); PH 5.5 (5.0-9.0); Specific Gravity - Urine 1.010 (1.005-1.025); UMIC TRIGGER UA YES
[2025-09-30 05:00] LABS: HIV Num 1 0.06 S/CO (0.00-0.99); ~HepC Num1 0.08 S/CO (0.00-0.79); ~Hepatitis C Antibody Nonreactive (Nonreactive)
== END 2025-09-29 10:01 | disposition home or self-care (01) ==
LOC: HO.LAB 10:00
PROVIDERS: PCP Internal Medicine; Visit Provider Internal Medicine
DX: Z00.00 Encounter for general adult medical examination without abnormal findings (principal); F17.210 Nicotine dependence, cigarettes, uncomplicated; Z23 Encounter for immunization; Z13.1 Encounter for screening for diabetes mellitus; Z78.0 Asymptomatic menopausal state
CPT/HCPCS: 36415; 80061; 81001; 82306; 83036; 85027; 86803; 87389; 96127